=== PATIENT | female | born 2000 ===

== ENCOUNTER → 2019-11-12 | Outpatient (REF) | payer MEDICAID ==
[2019-11-12 15:25] LABS: HEMOGLOBIN A1c 5.9 %
== END ==
LOC: M LAB REF 14:21
PROVIDERS: ATTEND Physician Assistant
DX: E11.9 Type 2 diabetes mellitus without complications (principal)

== ENCOUNTER → 2024-05-20 | Outpatient (REF) | LOC: M EMP 15:19 | PROVIDERS: ATTEND Family Medicine | DX: Z11.52 Encounter for screening for COVID-19 (principal) ==

== ENCOUNTER → 2025-10-22 | Outpatient (REF) | LOC: M EMP 15:35 | PROVIDERS: ATTEND Family Medicine | DX: Z01.89 Encounter for other specified special examinations (principal) ==